=== PATIENT | male | born 1940 | race Hispanic/Latino ===

== ENCOUNTER 2016-05-24 11:45 | Outpatient (CLI) | payer MEDICARE ==
--- NOTE | 2016-05-24 12:42 | XRay Report ---
CHEST 2 VIEWS: INDICATION: Cough. COMPARISON: 12/22/2009 FINDINGS: PA and lateral chest radiographs again demonstrate normal cardiomediastinal silhouette. COPD with flattened hemidiaphragms and mild bibasilar crowded markings and atelectasis/scarring about the right lateral costophrenic angle. Right more than left apical scarring/pleural thickening as well. No pleural effusions or CHF. Demineralized bones with few degenerative changes. CONCLUSION: COPD again noted without acute chest process, as described. Thank you for the opportunity to participate in this patient's care.
== END 2016-05-24 11:46 | disposition home or self-care (01) ==
LOC: SPVIMAG 11:45
PROVIDERS: ATTEND Internal Medicine
DX: J44.9 Chronic obstructive pulmonary disease, unspecified (principal)
CPT/HCPCS: 71020

== ENCOUNTER 2018-12-11 06:28 | Day surgery (SDC) | payer MEDICARE ==
[2018-12-11] MEDS ORDERED: NACL 0.9% 500 ML 500 ML IV SCH (07:00)
[2018-12-11 07:22] LABS: Basophils % (Auto) 0.6 % (0.0-1.8); Eosinophils # (Auto) 0.3 K/mm3 (0.0-0.4); Eosinophils % (Auto) 4.3 % (0.0-4.3); Hemoglobin 14.7 gm/dl (11.8-15.2); Lymphocytes # (Auto) 1.7 K/mm3 (1.2-5.4); Lymphocytes % (Auto) 23.5 % (13.4-35.0); Mean Corpuscular HGB Conc 34 % (32-34); Mean Corpuscular Volume 96 fl (84-94); Monocytes # (Auto) 0.7 K/mm3 (0.0-0.8); Monocytes % (Auto) 9.1 % (0.0-7.3); Platelet Count 185 K/mm3 (140-440); Red Blood Count 4.49 M/mm3 (3.65-5.03); Red Cell Distribution Width 13.8 % (13.2-15.2)
[2018-12-11 07:32] LABS: INR 1.07 (0.87-1.13)
[2018-12-11 07:36] LABS: BUN/Creatinine Ratio 16; Blood Urea Nitrogen 16 mg/dL (9-20); Calcium 9.3 mg/dL (8.4-10.2); Hemolysis Index 7
[2018-12-11] MEDS ORDERED: HEPARIN 10,000 UNITS/10 ML ONE (08:37)
[2018-12-11] MEDS ORDERED: HEPARIN/NS 5000 UNIT/500ML(CATH LAB) 1,000 ML IR ONE (08:37)
[2018-12-11] MEDS ORDERED: CALAN ONE (08:37)
[2018-12-11] MEDS ORDERED: NITROGLYCERIN SYRINGE 3 ML ONE (08:38)
[2018-12-11] MEDS ORDERED: XYLOCAINE 2% INFILTRATI ONE (08:38)
[2018-12-11] MEDS ORDERED: VERSED ONE (08:38)
[2018-12-11] MEDS ORDERED: SUBLIMAZE ONE (08:38)
[2018-12-11 13:12] VITALS: BP 140/79
--- NOTE | 2018-12-11 13:39 | Cardiac Catherization Report ---
PERIPHERAL ARTERIOGRAM REFERRING PHYSICIAN: Sanchez Raymundo MD INDICATION FOR PROCEDURE: The patient is a very pleasant 78-year-old gentleman with a known peripheral vascular disease. He has been treated with optimal medical therapy and has now had refractory symptoms to medications. He is referred for peripheral angiography. Risks, benefits, alternatives explained at length prior to obtaining informed consent. PROCEDURE IN DETAIL: The patient was brought to the finishing lab technician in a postabsorptive state, prepped and draped in sterile fashion. Left wrist used for access 6-Portuguese sheath used to place in the left radial artery via modified Seldinger technique. Pigtail catheter placed in the proximal aorta. DSA abdominal aortography was performed. Next, we placed the pigtail catheter in the distal aorta. DSA runoff peripheral lower extremity angiogram performed. Next, due to complex disease in the proximal right iliac, distal aortography DSAs performed and selective right common iliac artery DSA was performed. Third order angiography. Catheters removed from the body, sheath removed. The patient tolerated the procedure with no complications. DATA: Aortic pressure is 140/80. The patient remains in normal sinus rhythm throughout the procedure. FINDINGS: There is moderate diffuse aortic atheroma. Renal arteries are patent bilaterally. No evidence of aneurysm. The left common iliac, external iliac, common femoral, SFA, popliteal are normal with good 3-vessel runoff. The right common iliac artery is occluded ostially, reconstitutes at the point of the right external iliac artery. The right common femoral, SFA, popliteal are normal. There is normal 3-vessel runoff in the right. CONCLUSIONS: 1. [id number]-[id number] diffuse aortic atheroma. 2. Patent renal arteries bilaterally. 3. 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 No other significant disease noted. Good 3-vessel runoff bilaterally. Recommend Vascular Surgery consultation. Discussed with Dr. Douglas. Results of procedure explained to the patient and family. All questions and concerns were addressed. Standard radial care. [facility]# [id number] SBM/NATHAN
--- NOTE | 2018-12-11 15:49 | Short Stay Summary ---
Short Stay Documentation Date of service: 12/11/18 - History H&P: obtained from office - Allergies and Medications Current Medications: Allergies No Known Allergies Allergy (Unverified 12/11/18 06:28) Home Medications Medication Instructions Recorded Confirmed Last Taken Type Aspirin [Aspirin BABY CHEW TAB] 81 mg PO QDAY 12/11/18 12/11/18 12/10/18 History Carvedilol [Coreg] 6.25 mg PO BID 12/11/18 12/11/18 12/10/18 History Cilostazol [Pletal] 100 mg PO QDAY 12/11/18 12/11/18 12/10/18 History Finasteride 5 mg PO QDAY 12/11/18 12/11/18 12/10/18 History Simvastatin 40 mg PO HS 12/11/18 12/11/18 12/10/18 History - Brief post op/procedure progress note Date of procedure: 12/11/18 Pre-op diagnosis: PAD Post-op diagnosis: same Procedure: peripheral angiogram - see dictated cath report Anesthesia: local Estimated blood loss: none Condition: stable - Disposition Condition at discharge: Stable Disposition: DC-01 TO HOME OR SELFCARE - Discharge Diagnoses (1) PAD (peripheral artery disease) Status: Chronic (2) CAD (coronary artery disease) Status: Chronic (3) HTN (hypertension) Status: Chronic (4) Diabetes Status: Chronic (5) Hyperlipidemia Status: Chronic Short Stay Discharge Plan Activity: advance as tolerated Diet: low fat, low cholesterol, low salt, diabetic Wound: open to air, keep clean and dry, per your surgeon's advice Additional Instructions: Make follow up appointment with Dr.S. Raymundo -[phone] in 1week. Follow up with: MERT MOHAN JR, MD [Primary Care Provider] - 7 Days Forms: Post Arteriogram Instruct, Post Sedation D/C Instructions
== END 2018-12-11 13:15 | disposition home or self-care (01) ==
LOC: CATHLABREC 06:28
PROVIDERS: ATTEND Internal Medicine
DX: E11.51 Type 2 diabetes mellitus with diabetic peripheral angiopathy without gangrene (principal); I73.9 Peripheral vascular disease, unspecified; I70.0 Atherosclerosis of aorta; I74.5 Embolism and thrombosis of iliac artery; I25.10 Atherosclerotic heart disease of native coronary artery without angina pectoris; I10 Essential (primary) hypertension; E78.5 Hyperlipidemia, unspecified; E78.00 Pure hypercholesterolemia, unspecified; J43.9 Emphysema, unspecified; Z98.890 Other specified postprocedural states; Z79.899 Other long term (current) drug therapy; Z79.82 Long term (current) use of aspirin; Z87.891 Personal history of nicotine dependence; Z85.51 Personal history of malignant neoplasm of bladder; Z80.1 Family history of malignant neoplasm of trachea, bronchus and lung; Z80.42 Family history of malignant neoplasm of prostate
CPT/HCPCS: 36200; 36415; 75625; 75716; 80048; 85025; 85610; 99156; 99157; C1894; J1644; J2250; J3010; J7040; 81025; Q9967

== ENCOUNTER 2018-12-25 06:01 | Day surgery (SDC) | payer MEDICARE ==
[2018-12-25] MEDS ORDERED: NACL 0.9% 1000 ML 1,000 ML ONE (06:38)
[2018-12-25 06:56] LABS: Hematocrit 42.1 % (35.5-45.6); Hemoglobin 14.3 gm/dl (11.8-15.2); Mean Corpuscular HGB Conc 34 % (32-34); Mean Corpuscular Volume 97 fl (84-94); Platelet Count 150 K/mm3 (140-440); Red Blood Count 4.36 M/mm3 (3.65-5.03); Red Cell Distribution Width 13.5 % (13.2-15.2)
[2018-12-25] MEDS ORDERED: NACL 0.9% 1000 ML 1,000 ML IV SCH (07:00)
[2018-12-25 07:07] LABS: INR 1.1 (0.87-1.13)
[2018-12-25 07:08] LABS: BUN/Creatinine Ratio 18; Blood Urea Nitrogen 16 mg/dL (9-20); Hemolysis Index 8; Partial Thromboplastin Time 28.2 Sec. (24.2-36.6)
[2018-12-25] MEDS ORDERED: HEPARIN/NS 5000 UNIT/500ML(CATH LAB) 1,000 ML IR ONE (08:17)
[2018-12-25] MEDS ORDERED: XYLOCAINE 2% INFILTRATI ONE ×3 (08:17→08:52)
[2018-12-25] MEDS ORDERED: HEPARIN 10,000 UNITS/10 ML ONE (08:17)
[2018-12-25] MEDS ORDERED: VERSED ONE ×2 (08:40→09:14)
[2018-12-25] MEDS ORDERED: SUBLIMAZE ONE ×2 (08:40→09:14)
[2018-12-25] MEDS ORDERED: NACL 0.9% IR ONE (08:40)
[2018-12-25] MEDS ORDERED: HEPARIN IR ONE (08:40)
[2018-12-25] MEDS ORDERED: VERSED IV ONE ×3 (08:43→09:13)
[2018-12-25] MEDS ORDERED: SUBLIMAZE IV ONE ×3 (08:43→09:14)
[2018-12-25] MEDS ORDERED: HEPARIN 10,000 UNITS/10 ML IV ONE (08:55)
--- NOTE | 2018-12-25 10:04 | Short Stay Summary ---
Short Stay Documentation Date of service: 12/25/18 Narrative H&P: See H&P - History H&P: obtained from office - Allergies and Medications Current Medications: Allergies No Known Allergies Allergy (Unverified 12/11/18 06:28) Home Medications Medication Instructions Recorded Confirmed Last Taken Type Aspirin [Aspirin BABY CHEW TAB] 81 mg PO QDAY 12/11/18 12/25/18 12/24/18 History Carvedilol [Coreg] 6.25 mg PO BID 12/11/18 12/25/18 12/24/18 History Cilostazol [Pletal] 100 mg PO BID 12/11/18 12/25/18 12/24/18 History Finasteride 5 mg PO QDAY 12/11/18 12/25/18 12/24/18 History Simvastatin 40 mg PO HS 12/11/18 12/25/18 12/24/18 History Tamsulosin [Flomax] 0.4 mg PO DAILY 12/25/18 12/25/18 12/24/18 History metFORMIN [Glucophage] 500 mg PO BID 12/25/18 12/25/18 12/23/18 History Active Medications Sodium Chloride (Nacl 0.9% 1000 Ml) 1,000 mls @ 42 mls/hr IV DIRECT TIESHA Last Admin: 12/25/18 06:52 Dose: 42 mls/hr Documented by: - Brief post op/procedure progress note Date of procedure: 12/25/18 Pre-op diagnosis: PVD with Bilateral Lower Extremity Claudication Post-op diagnosis: same Procedure: 1. Ultrasound-Guided Access Left Common Femoral Artery 2. Ultrasound-Guided Access Right Common Femoral Artery 3. Angioplasty and Stenting of Right Common Iliac Artery with 8 x 57 Viabahn VBX Balloon-Expandable Stent Graft Postdilated with a 9 x 60 EverCross Balloon 4. Angioplasty and Stent of Left Common Iliac Artery with 8 x 37 and 8 x 27 Viabahn VBX Balloon-Expandable Stent Grafts Postdilated with a 10 x 40 [place] Balloon 5. Closure of Bilateral Femoral Arteriotomies with ProGlide Closure Devices 6. Radiologic Supervision with Interpretation 7. Monitor Moderate Sedation Anesthesia: MAC, local Surgeon: ABDI EYN Estimated blood loss: minimal Pathology: none Condition: stable - Disposition Condition at discharge: Good Disposition: DC-01 TO HOME OR SELFCARE Short Stay Discharge Plan Activity: other (no strenuous activity for 24 hours) Wound: remove dressing (24 hours) Special Instructions: hold Metformin (48 hours) Follow up with: ABDI YEN MD [Staff Physician] - 14 Days Prescriptions: HYDROcodone/APAP 7.5-325 [[place] 7.5/325] 1 each PO Q6HR PRN #30 tablet PRN Reason: Pain Clopidogrel [Plavix] 75 mg PO QDAY #90 tablet
[2018-12-25] MEDS ORDERED: NORCO 5/325 PO PRN (10:10)
[2018-12-25] MEDS ORDERED: PLAVIX PO SCH (11:00)
--- NOTE | 2018-12-25 11:12 | Operative Report ---
Operative Report Operative Report: Date of Procedure: 12/25/2018 Pre-operative Diagnosis: PVD with Bilateral Lower Extremity Claudication Post-operative Diagnosis: Same Procedure(s): 1. Ultrasound-Guided Access Left Common Femoral Artery 2. Ultrasound-Guided Access Right Common Femoral Artery 3. Angioplasty and Stenting of Right Common Iliac Artery with 8 x 57 Viabahn VBX Balloon-Expandable Stent Graft Postdilated with a 9 x 60 EverCross Balloon 4. Angioplasty and Stent of Left Common Iliac Artery with 8 x 37 and 8 x 27 Viabahn VBX Balloon-Expandable Stent Grafts Postdilated with a 10 x 40 Index Balloon 5. Closure of Bilateral Femoral Arteriotomies with ProGlide Closure Devices 6. Radiologic Supervision with Interpretation 7. Monitor Moderate Sedation Surgeon: Delfin Douglas M.D. Axle Turner: None Anesthesia: Local and IV Sedation Total Anesthesia Time: 54 Minutes EBL: Minimal Counts: Correct Complications: None Condition: Stable Specimen: None Indication: The patient is a 78-year-old male with a history of peripheral vascular disease who had a known occlusion of his right iliac artery and stenosis of his left iliac artery with severe short distance claudication was in need of intervention. He was given the risks, benefits, and alternative procedures and consented to procedure. Angiographic Findings: The patient had a completely occluded right common iliac artery was reconstituted above the bifurcation of the hypogastric and external iliac artery. He had approximate 75% stenosis of his left common iliac artery. After angioplasty and stenting of the right common iliac artery the artery was widely patent less than 10% residual stenosis and no evidence of dissection. After initial angioplasty and stenting of the left common iliac artery there appeared to be a dissection, likely secondary to the heavily calcified artery. An additional stent graft was placed the adequately treated this dissection with now less than 10% residual stenosis and no further evidence of the dissection. Description of Procedure: The patient was brought to the wharf labourer and laid in supine position. After timeout was performed his bilateral groins were prepped and draped in normal sterile fashion. Ultrasound was used to identify the left common femoral artery and confirm patency. Once patency was confirmed 2% lidocaine was used to anesthetize the skin overlying soft tissue and an 11 blade was used to make a small stab incision and a curved hemostat was used to bluntly dissect down to the anterior surface of the artery under ultrasound guidance. Micropuncture technique was used with ultrasound guidance to access the artery and a 0.018 wire was advanced into the artery under fluoroscopy. The needle was then removed and exchanged for a micropuncture sheath. The dilator and wire were removed and a 0.035 Bentson wire was advanced into the aorta under fluoroscopy. The micropuncture sheath was then exchanged for a 5 [place] sheath by Seldinger technique. Ultrasound was then used to identify the right common femoral artery and confirm patency. Once patency was confirmed overlying skin and soft tissue was anesthetized with lidocaine and an 11 blade was used to make a small stab incision. A curved hemostat was used with ultrasound guidance to bluntly dissect down to the anterior surface of the artery and micropuncture technique was used to access the artery under ultrasound guidance. A 0.018 wire was advanced into the artery under fluoroscopy and the needle was exchanged for a mi cropuncture sheath. The dilator and wire were removed and a 0.035 J-wire was advanced into the artery. The micropuncture sheath was exchanged for a 5 [place] sheath by Seldinger technique and then the patient was systemically heparinized with 3000 units heparin IV. I then advanced a 5 [place] vertebral catheter over the J-wire and exchanged the J-wire for a 0.018 V18 wire. I was able to traverse the occluded common iliac artery and into the aorta which was confirmed by arteriogram. I exchanged the V18 wire for a 0.035 Bentson wire and then exchanged the 5 [place] sheath on the right for a 7 [place] 23 cm sheath which was advanced into the aorta. I exchanged the left 5 [place] sheath for a 7 [place] 11 cm sheath. I then advanced a 8 x 57 Viabahn VBX Balloon-Expandable Stent Graft up the right side and into the aorta and a 8 x 37 Viabahn VBX Balloon-Expandable Stent Graft of the left side into the aorta. I pulled the 23 cm sheath back and performed an arteriogram to venkat the bifurcation of the hypogastric and external iliac artery. Once this was marked I position the stent grafts in the aorta to ensure that they were level and that the right hypogastric was preserved. The stent grafts were then simultaneously deployed. Once they were deployed the delivery balloons were removed and the right stent graft was postdilated with a 9 x 60 Ever[place] Balloon and the left stent graft was postdilated with a 10 x 40 Index Balloon. The post-deployment angiogram revealed the right stent graft was patent with less than 10% residual stenosis and no evidence of dissection. The left stent graft was less than 10% residual stenosis however there was a questionable dissection that despite multiple obliquities could not be explained so an additional stent graft was placed to treat this. I advanced an 8 x 27 Viabahn VBX Balloon-Expandable Stent Graft into position with approximately 1 cm of overlap and deployed it. This was postdilated with a 10 mm balloon to assure had adequate wall apposition. The final angiogram revealed less than 10% residual stenosis with adequate wall apposition of the stent graft and no further evidence of the dissection. At this point the balloons were removed and ProGlide closure devices were used to close each femoral arteriotomy after removing the sheaths. Sterile dressings were then applied to the groin insertion sites and the patient was transported to the recovery area in stable condition.
[2018-12-25] MEDS ORDERED: ZOFRAN IV ONE (11:52)
[2018-12-25] MEDS ORDERED: ZOFRAN ONE (11:53)
[2018-12-25 12:22] VITALS: BP 121/69
== END 2018-12-25 12:05 | disposition home or self-care (01) ==
LOC: CATHLABREC 06:01
PROVIDERS: ATTEND Surgery Vascular Surgery
DX: I70.213 Atherosclerosis of native arteries of extremities with intermittent claudication, bilateral legs (principal); E11.51 Type 2 diabetes mellitus with diabetic peripheral angiopathy without gangrene; I25.10 Atherosclerotic heart disease of native coronary artery without angina pectoris; I10 Essential (primary) hypertension; J43.9 Emphysema, unspecified; E78.5 Hyperlipidemia, unspecified; Z87.891 Personal history of nicotine dependence; Z79.899 Other long term (current) drug therapy; Z79.84 Long term (current) use of oral hypoglycemic drugs; Z79.82 Long term (current) use of aspirin; Z95.5 Presence of coronary angioplasty implant and graft; Z80.1 Family history of malignant neoplasm of trachea, bronchus and lung; Z80.8 Family history of malignant neoplasm of other organs or systems; Z85.51 Personal history of malignant neoplasm of bladder; Z80.42 Family history of malignant neoplasm of prostate; Z79.01 Long term (current) use of anticoagulants
CPT/HCPCS: 36415; 37221; 76937; 80048; 85027; 85610; 85730; 96374; 99156; 99157; C1725; C1760; C1769; C1874; C1894; J1644; J2250; J2405; J3010; J7030; J7050; Q9967